=== PATIENT | male | born 1965 | race Caucasian/White ===

== ENCOUNTER 2021-10-21 14:23 | Emergency (ER) | payer SELFPAY | END 2021-10-21 16:38 | disposition home or self-care (01) | LOC: MW.ED 14:23 | DX: M79.661 Pain in right lower leg (principal); S82.141D Displaced bicondylar fracture of right tibia, subsequent encounter for closed fracture with routine healing; Z91.19 Patient's noncompliance with other medical treatment and regimen | CPT/HCPCS: 36415; 735902650; 73590-50; 85025; 99283-25 ==